=== PATIENT | female | born 1955 | race Caucasian/White ===

== ENCOUNTER 2018-07-27 11:17 | Emergency (ER) | payer OTHER ==
[~2018-07-27] VITALS: Ht 147.3 cm; Wt 71.2 kg
[2018-07-27] MEDS ORDERED: FIORICET (11:41)
== END 2018-07-28 01:02 | disposition home or self-care (01) ==
LOC: ER 11:17 → EDBD 11:38 → ER 07-28 01:02
DX: K74.5 Biliary cirrhosis, unspecified (principal); R10.84 Generalized abdominal pain